=== PATIENT | female | born 1995 | race Caucasian/White ===

== ENCOUNTER 2020-09-11 14:16 | Emergency (ER) | payer OTHER ==
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
--- NOTE | 2020-09-11 15:06 | XRAY Report ---
PROCEDURE: Elbow 2 View LT INDICATIONS: pain medially after fall TECHNIQUE: 2 views of the elbow were acquired. COMPARISON: None FINDINGS: Bones: No fractures or dislocations. No suspicious bony lesions. Soft tissues: No elbow joint effusion. No suspicious soft tissue calcifications. IMPRESSION: No acute elbow fracture or dislocation. No joint effusion. Reviewed by: Floyd De La Fuente MD on 09/11/2020 3:05 PM PDT Approved by: Floyd De La Fuente MD on 09/11/2020 3:05 PM PDT Station ID: [id number]
--- NOTE | 2020-09-11 15:06 | XRAY Report ---
PROCEDURE: Shoulder 3 View LT INDICATIONS: pain after fall TECHNIQUE: 3 views of the shoulder were acquired. COMPARISON: None. FINDINGS: Bones: No fractures or dislocations. No suspicious bony lesions. Visualized ribs appear intact. Soft tissues: No suspicious soft tissue calcifications. IMPRESSION: No acute shoulder fracture or dislocation. No gross soft tissue abnormality. Reviewed by: Floyd De La Fuente MD on 09/11/2020 3:05 PM PDT Approved by: Floyd De La Fuente MD on 09/11/2020 3:05 PM PDT Station ID: [id number]
[2020-09-11] MEDS: KETOROLAC 60 MG/2 ML VIAL IM STA (15:13)
[2020-09-11] MEDS: BACITRACIN ZINC OINT 1 PACKET TOP STA (15:50)
[2020-09-11 15:51] VITALS: BP 120/60
== END 2020-09-11 15:51 | disposition home or self-care (01) ==
LOC: ED 14:16
DX: S70.312A Abrasion, left thigh, initial encounter (principal); S50.312A Abrasion of left elbow, initial encounter; S80.212A Abrasion, left knee, initial encounter; V19.9XXA Pedal cyclist (driver) (passenger) injured in unspecified traffic accident, initial encounter; Y93.55 Activity, bike riding
CPT/HCPCS: 73030; 73070; 96372; 99282; 99283; A9270